=== PATIENT | male | born 2005 | race Caucasian/White ===

== ENCOUNTER 2024-06-14 16:50 | Emergency (ER) | payer SELFPAY ==
[2024-06-14 16:55] VITALS: BMI 43.2
[2024-06-14 16:58] VITALS: BP 120/55
[2024-06-14] MEDS: MOTRIN 600 MG PO (17:35)
[2024-06-14] MEDS: DELTASONE 50 MG PO (17:35)
[2024-06-14] MEDS: DUONEB 3 ML INH (17:35)
[2024-06-14 17:56] LABS: COVID-19 Antigen Positive (Negative)
--- NOTE | 2024-06-14 18:27 | ED.GENMED ---
History of Present Illness
<Joyce Duncan PA-C - Last Filed: 06/14/24 23:41>
General
Chief Complaint: Cold/Flu/URI Symptoms
Source: patient and other ([facility] records)
Exam Limitations: none
Time Seen by Provider: 06/14/24 16:56
Nursing documentation reviewed up to this point in time: agreed with
History of Present Illness
History of Present Illness:
Patient is a 19-year-old male with history asthma, diabetes, hypertension, hyperlipidemia presenting to the emergency department via EMS from [facility] for evaluation of upper respiratory symptoms associated with shortness of breath. Patient
describes about 4 to 5 days of nasal congestion, headache, sore throat, and cough. He noted that today he was feeling more short of breath with having some difficulty breathing which prompted emergency department visit today. Antonette did
receive 1 DuoNeb prior to arrival. He has been taking Tylenol at [facility] for symptom relief of headache and sore throat.
Patient does have an albuterol inhaler that he uses as needed for asthma exacerbations. No daily inhaler.
Review of Systems
<Joyce Duncan PA-C - Last Filed: 06/14/24 23:41>
Review of Systems
Allergies reviewed?: Yes
All Other Systems: ROS reviewed and negative except as documented in HPI and ROS
Phy Exam
<Joyce Duncan PA-C - Last Filed: 06/14/24 23:41>
Physical Exam
Physical Exam:
Vitals: Patient's vital signs are stable. Afebrile
General: Patient is well appearing, no acute distress. Nontoxic-appearing
Skin: Warm and dry, no rashes or lesions
Head: Normocephalic, atraumatic
Eyes: Sclera nonicteric. EOMs intact. No nystagmus.
Throat: Posterior pharynx mildly erythematous without any tonsillar edema or exudates. Uvula midline. Protecting airway
Neck: Normal ROM, no cervical spine tenderness, no meningismus. Trachea midline
Cardiac: Regular rate and rhythm, no murmurs.
Pulm: In no apparent respiratory distress. Mildly decreased air movement bilaterally. No wheezing. Oxygen saturation 99 on room air.
Abdomen: Abdomen soft. No abdominal tenderness.
Extremities: No evidence of cyanosis or edema. Great distal pulses
Neuro: AAOx3. CN II-XII intact. No focal neurologic deficits.
Psychiatric: Normal affect.
Course
<Joyce Duncan PA-C - Last Filed: 06/14/24 23:41>
Orders/Labs/Results
Orders:
Orders
06/14/24 17:21
Ibuprofen [Motrin] 600 mg PO NOW STA
Ipratropium/Albuterol Sulfate [Duoneb] 3 ml INH R NOW STA
Prednisone [Deltasone] 50 mg PO NOW STA
06/14/24 17:34
COVID-19 Antigen Urgent
Source: Nasal Swab
Abnormal Lab Results
06/14/24
17:34
SARS-CoV-2 Antigen Positive A
(Negative)
Vital Signs
Initial and Last Documented VS:
Initial Vital Signs
Temp Pulse Resp BP Pulse Ox
97.6 F 73 16 120/55 99
06/14/24 16:58 06/14/24 16:58 06/14/24 16:58 06/14/24 16:58 06/14/24 16:58
Last Documented Vital Signs
Temp Pulse Resp BP Pulse Ox
97.6 F 81 16 124/65 98
06/14/24 16:58 06/14/24 18:54 06/14/24 20:00 06/14/24 18:54 06/14/24 18:54
<Zainab Brownlee DO - Last Filed: 06/14/24 19:47>
Orders/Labs/Results
Orders:
Orders
06/14/24 17:21
Ibuprofen [Motrin] 600 mg PO NOW STA
Ipratropium/Albuterol Sulfate [Duoneb] 3 ml INH R NOW STA
Prednisone [Deltasone] 50 mg PO NOW STA
06/14/24 17:34
COVID-19 Antigen Urgent
Source: Nasal Swab
Abnormal Lab Results
06/14/24
17:34
SARS-CoV-2 Antigen Positive A
(Negative)
Vital Signs
Initial and Last Documented VS:
Initial Vital Signs
Temp Pulse Resp BP Pulse Ox
97.6 F 73 16 120/55 99
06/14/24 16:58 06/14/24 16:58 06/14/24 16:58 06/14/24 16:58 06/14/24 16:58
Last Documented Vital Signs
Temp Pulse Resp BP Pulse Ox
97.6 F 81 16 124/65 98
06/14/24 16:58 06/14/24 18:54 06/14/24 20:00 06/14/24 18:54 06/14/24 18:54
<Joyce Duncan PA-C - Last Filed: 06/14/24 23:41>
MDM/Problems Addressed
Differential Diagnosis Includes:
Not limited to: Asthma exacerbation, viral illness, COVID, bronchitis
MDM/Problems Addressed:
Patient is a 19-year-old male with history asthma presenting via EMS from [facility] for evaluation of viral symptoms and associated shortness of breath. Patient with 4 to 5 days of upper respiratory symptoms with acute worsening shortness of
breath today. No known sick contacts. He did receive 1 DuoNeb prior to arrival. On arrival�patient's vital signs are stable. He is nontoxic-appearing. He appears to be in no respiratory distress with oxygenation of 99% on room air. Posterior
pharynx with mild erythema without any significant tonsillar edema or exudates suggest bacterial pharyngitis. No meningeal signs. Heart regular rate and rhythm. Patient with mildly decreased breath sounds throughout lung overton. No wheezing.
Abdomen is soft and nontender. Patient perfusing well. Symptoms seem consistent with likely mild asthma exacerbation secondary to viral infection. Will give DuoNeb, dose of steroid. Will check COVID. Motrin for pain. Will closely monitor and
reassess.
COVID positive. Did reevaluate patient at bedside. Lungs clear bilaterally�appear improved from initial examination. Patient otherwise well-appearing and nontoxic appearing. He is not hypoxic and in no apparent respiratory distress. Patient
does have albuterol inhaler that he can use at home. Will discharge with 4 days of prednisone, supportive care. Report return precautions discussed. Patient seen with attending physician.
Chronic conditions affecting care:
Asthma
Acute Exacerbation and/or Progression of Chronic Illness:
Acute asthma exacerbation
<Joyce Duncan PA-C - Last Filed: 06/14/24 23:41>
*Pulse Oximetry
Patient hypoxic: no
*EKG
Interpreted by ED Provider?: NA
*Business Support Interpretation
Rate: Business Support- N/A
*Critical Care Note
Total Time (30-74mins, 75-104mins- exclusive of procedures): Not Applicable
ED Attending Note
<Joyce Duncan PA-C - Last Filed: 06/14/24 23:41>
-
Portions of this chart may have been created with voice recognition software.� Occasional wrong word or��sound alike� substitutions may have occurred due to the inherent limitations of voice recognition software.
<Zainab Brownlee DO - Last Filed: 06/14/24 19:47>
ED Attending Note
Patient seen and examined by attending physician: Yes
I performed a history and physical exam of patient and discussed management with resident, I reviewed resident's note and agree with documented findings and plan of care.: Yes
ED Attending Note:
I have reviewed and agree with Joyce Duncan PA-C's history and treatment plan. 19yoM hx asthma presenting with flu like symptoms starting 1 week ago, worsening shortness of breath today prompting ED arrival. Pt received duoneb and steroids prior
to my evaluation. On my exam, heart RRR, lungs clear with no wheezing, no respiratory distress, speaking full unlabored sentences. COVID positive. Discussed with nurse who states patient has an albuterol inhaler at [facility]. Stable for discharge
with prednisone for asthma exacerbation. Pt outside window for Paxlovid.
Discharge Plan
Departure
Patient Disposition: Home (Routine Discharge)
Date of Disposition: 06/14/24
Time of Disposition: 18:33
Patient with high blood pressure during this ER visit?: No
Condition: Good
Covid-19: Confirmed COVID-19
Discharge Problem:
COVID-19, Mild asthma exacerbation
Instructions: Asthma, Adult ED, COVID-19 ED
Prescriptions:
New
prednisone 20 mg tablet
40 mg PO DAILY 4 Days Qty: 8 0RF
Referrals:
UNKNOWN - PT DOES,NOT KNOW [Family Provider] -
Activity Restrictions/Additional Instructions:
RETURN TO THE EMERGENCY DEPARTMENT WITH ANY HIGH FEVERS, SEVERE HEADACHE, CHEST PAIN, SHORTNESS OF BREATH/DIFFICULTY BREATHING, WORSENING IN CURRENT SYMPTOMS, OR ANY OTHER CONCERNS
-As discussed�you did test positive for COVID while in the emergency department.
-You should take the prednisone daily for the next 4 days. You should begin this prescription tomorrow. You received your first dose of steroid while in the emergency department today. You should also continue to use your albuterol inhaler every
4-6 hours as needed for any shortness of breath, cough, wheezing.
-You should take Motrin and/or Tylenol for any headache or fevers.
-The prescription has been printed and been sent home with you today.
-Follow-up with your primary care provider for further evaluation/management.
Monitor your symptoms closely and return to the emergency department with any acute worsening/new symptoms.
Interventions
Interventions:
*Risk Screen - Suicide Last Done: 06/14/24 17:03
*General Assessment Last Done: 06/14/24 17:03
*Neglect/Abuse Screening Last Done: 06/14/24 17:03
ED- Fall Risk Assessment Last Done: 06/14/24 18:55
*ED COVID-19 Vaccine History Last Done: 06/14/24 16:58
*Nursing Disposition Last Done: 06/14/24 18:55
ED- Pulmonary Assessment Last Done: 06/14/24 17:06
Discharge Date and Time
Discharge Date/Time: 06/14/24 20:22
Print Language: [place]
[2024-06-14 18:54] VITALS: BP 124/65
== END 2024-06-14 20:22 | disposition home or self-care (01) ==
LOC: EMR 16:50
PROVIDERS: Physician Assistant; EMERGENCY PHYSICIAN Emergency Medicine
DX: U07.1 COVID-19 (principal); J45.901 Unspecified asthma with (acute) exacerbation; E11.9 Type 2 diabetes mellitus without complications; I10 Essential (primary) hypertension; E78.00 Pure hypercholesterolemia, unspecified
CPT/HCPCS: 99283; 94640; 87811